=== PATIENT | male | born 1965 | race Caucasian/White ===

== ENCOUNTER 2016-11-02 14:15 | Emergency (ER) | payer MEDICAID ==
[2016-01-03 04:31] VITALS: BMI 28.2
[~2016-11-02 14:15] MED LIST: ALPHAGAN P15 ML EACH EYE; CROLOM 4 % OPTH10 ML EACH EYE; CYCLOBENZAPRINE10 MG PO; DEPAKOTE ER250 MG PO; ERYTHROCIN STE250 MG; HYDROCODON-ACE1 EAC7 PO; KLOR-CON M2020 MEQ PO; NEO-POLY-DEXAM3.5 GM EACH EYE; PROAIR HFA8.5 GM INH; PROTONIX40 MG PO; TENORETIC 50 TA1 TAB PO; ZOFRAN4 MG PO
== END 2016-11-02 16:27 | disposition home or self-care (01) ==
LOC: D.ER 14:15
DX: J01.90 Acute sinusitis, unspecified (principal); R91.8 Other nonspecific abnormal finding of lung field

== ENCOUNTER 2017-04-01 14:34 | Emergency (ER) | payer MEDICAID ==
[2016-01-03 04:31] VITALS: BMI 28.2
== END 2017-04-01 15:32 | disposition home or self-care (01) ==
LOC: D.ER 14:34
DX: S01.512A Laceration without foreign body of oral cavity, initial encounter (principal); X58.XXXA Exposure to other specified factors, initial encounter; Y93.89 Activity, other specified; Y92.89 Other specified places as the place of occurrence of the external cause

== ENCOUNTER 2017-07-06 18:43 | Emergency (ER) | payer MEDICAID ==
[2016-01-03 04:31] VITALS: BMI 28.2
== END 2017-07-06 20:06 | disposition left against medical advice (07) ==
LOC: D.ER 18:43
DX: S69.92XA Unspecified injury of left wrist, hand and finger(s), initial encounter (principal); X58.XXXA Exposure to other specified factors, initial encounter; Y93.89 Activity, other specified; Y92.029 Unspecified place in mobile home as the place of occurrence of the external cause

== ENCOUNTER 2017-07-17 14:36 | Emergency (ER) | payer MEDICAID ==
[2016-01-03 04:31] VITALS: BMI 28.2
[2017-07-17 16:17] LABS: BASOPHILS 0.1 % (0-2); EOSINOPHILS 0.4 % (0-7); HEMATOCRIT 41.5 % (42.0-54.0); HEMOGLOBIN 14.4 g/dL (13.5-17.5); IMMATURE GRANULOCYTES 0.2 % (0-5); LYMPHOCYTES 8.3 % (15-50); MCH 30.9 pg (26.0-34.0); MCHC 34.7 g/dL (31.0-37.0); MCV 89.1 fL (80.0-100.0); MEAN PLATELET VOLUME 10.3 fL (7.4-10.4); MONOCYTES 6.5 % (2-11); NEUTROPHILS 84.5 % (40-80); RBC 4.66 10x6/uL (4.20-6.10); WBC 13.3 10x3/uL (4.8-10.8)
[2017-07-17 16:21] LABS: APPEARANCE CLEAR (CLEAR); BILIRUBIN NEGATIVE (NEGATIVE); COLOR YELLOW (YELLOW); GLUCOSE NEGATIVE (NEGATIVE); KETONE NEGATIVE (NEGATIVE); NITRITE NEGATIVE (NEGATIVE); PROTEIN NEGATIVE (NEGATIVE); SPECIFIC GRAVITY 1.005 (1.005-1.020); UROBILINOGEN NORMAL (NORMAL)
[2017-07-17 16:30] LABS: PLATELET COUNT 182 10x3/uL (130-400)
[2017-07-17 16:50] LABS: ALBUMIN 3.2 g/dL (3.4-5.0); ANION GAP 13.9 mmol/L (8-16); CALCIUM 8.3 mg/dL (8.5-10.1); CARBON DIOXIDE 27.8 mmol/L (21.0-32.0); CREATININE - SERUM 1.3 mg/dL (0.6-1.3); PROTEIN - SERUM 6.2 g/dL (6.4-8.2)
[2017-07-17 16:55] LABS: POTASSIUM - SERUM 2.7 mmol/L (3.5-5.1)
[2017-07-17 17:42] LABS: CREATINE KINASE 105 UL (21-232); TROPONIN-I < 0.017 ng/mL (0.000-0.060)
[2017-07-17 19:31] LABS: UDS - AMPHET POSITIVE QUAL (NEGATIVE); UDS - BARB NEGATIVE QUAL (NEGATIVE); UDS - BENZO NEGATIVE QUAL (NEGATIVE); UDS - COCAINE NEGATIVE QUAL (NEGATIVE); UDS - OPIATE NEGATIVE QUAL (NEGATIVE); UDS - PCP NEGATIVE QUAL (NEGATIVE); UDS - THC NEGATIVE QUAL (NEGATIVE)
== END 2017-07-17 20:34 | disposition home or self-care (01) ==
LOC: D.ER 14:36
PROVIDERS: Emergency Medicine; Nurse Practitioner Family
DX: R53.1 Weakness (principal); E87.6 Hypokalemia; Z91.14 Patient's other noncompliance with medication regimen

== ENCOUNTER 2017-10-05 23:41 | Emergency (ER) | payer MEDICAID | END 2017-10-06 07:30 | disposition home or self-care (01) | LOC: D.ER 23:41 | DX: Z04.1 Encounter for examination and observation following transport accident (principal); Z03.89 Encounter for observation for other suspected diseases and conditions ruled out; V49.9XXA Car occupant (driver) (passenger) injured in unspecified traffic accident, initial encounter; Y93.89 Activity, other specified; Y92.410 Unspecified street and highway as the place of occurrence of the external cause ==

== ENCOUNTER 2018-05-21 07:31 | Emergency (ER) | payer MEDICAID ==
[~2018-05-21] VITALS: Ht 185.4 cm; Wt 101.6 kg
[2018-05-21 07:34] VITALS: Ht 185.4 cm; Wt 101.6 kg
[2018-05-21 08:48] LABS: BASOPHILS 0.1 % (0-2); EOSINOPHILS 0.1 % (0-7); HEMATOCRIT 40.3 % (42.0-54.0); HEMOGLOBIN 14.4 g/dL (13.5-17.5); IMMATURE GRANULOCYTES 0.3 % (0-5); LYMPHOCYTES 8.5 % (15-50); MCH 31.4 pg (26.0-34.0); MCHC 35.7 g/dL (31.0-37.0); MCV 87.8 fL (80.0-100.0); MEAN PLATELET VOLUME 10.4 fL (7.4-10.4); PLATELET COUNT 160 10x3/uL (130-400); RBC 4.59 10x6/uL (4.20-6.10); WBC 18.9 10x3/uL (4.8-10.8)
[2018-05-21 08:58] LABS: ALBUMIN 3.3 g/dL (3.4-5.0); ANION GAP 11.5 mmol/L (8-16); BILIRUBIN - TOTAL 1.28 mg/dL (0.2-1.3); CALCIUM 8.4 mg/dL (8.5-10.1); CARBON DIOXIDE 27.6 mmol/L (21.0-32.0); CREATININE - SERUM 1.4 mg/dL (0.6-1.3); POTASSIUM - SERUM 3.1 mmol/L (3.5-5.1); PROTEIN - SERUM 6.6 g/dL (6.4-8.2)
[2018-05-21] MEDS ORDERED: ZPAK PO (10:09)
[2018-05-21] MEDS ORDERED: OMNICEF300 MG PO (10:09)
[2018-05-21 11:40] VITALS: BP 150/97
== END 2018-05-21 11:45 | disposition home or self-care (01) ==
LOC: D.ER 07:31
PROVIDERS: Family Medicine
DX: D72.829 Elevated white blood cell count, unspecified (principal); J20.9 Acute bronchitis, unspecified; R05 Cough; R53.83 Other fatigue

== ENCOUNTER 2018-06-09 10:06 | Emergency (ER) | payer MEDICAID ==
[~2018-06-09] VITALS: Ht 185.4 cm; Wt 101.8 kg
[~2018-06-09 10:06] MED LIST changes: +OMNICEF300 MG PO; +ZPAK PO
[2018-06-09 10:11] VITALS: Ht 185.4 cm; Wt 101.8 kg
[2018-06-09] MEDS ORDERED: CHLORPROMAZINE200 MG PO (10:13)
[2018-06-09] MEDS ORDERED: KLONOPIN1 MG PO (10:13)
[2018-06-09 11:14] LABS: ALBUMIN 3.1 g/dL (3.4-5.0); ALKALINE PHOSPHATASE 68 U/L (46-116); ALT (SGPT) 19 U/L (10-68); BILIRUBIN - TOTAL 1.47 mg/dL (0.2-1.3); CALC OSMOLALITY 284 mosm/kg (275-300); CALCIUM 7.9 mg/dL (8.5-10.1); CARBON DIOXIDE 28.3 mmol/L (21.0-32.0); CHLORIDE - SERUM 104 mmol/L (98-107); CREATININE - SERUM 1.4 mg/dL (0.6-1.3); GLUCOSE 143 mg/dL (74-106); POTASSIUM - SERUM 3.1 mmol/L (3.5-5.1); PROTEIN - SERUM 6.3 g/dL (6.4-8.2); SODIUM 139 mmol/L (136-145); UREA NITROGEN 26 mg/dL (7-18); eGFR NON AFRICAN AMERICAN 56 mL/min (90-120)
[2018-06-09 11:16] LABS: BASOPHILS 0.2 % (0-2); EOSINOPHILS 1.1 % (0-7); HEMATOCRIT 39.8 % (42.0-54.0); HEMOGLOBIN 13.7 g/dL (13.5-17.5); IMMATURE GRANULOCYTES 0.2 % (0-5); LYMPHOCYTES 8.7 % (15-50); MCH 30.9 pg (26.0-34.0); MCHC 34.4 g/dL (31.0-37.0); MCV 89.6 fL (80.0-100.0); MEAN PLATELET VOLUME 10.2 fL (7.4-10.4); MONOCYTES 5.5 % (2-11); NEUTROPHILS 84.3 % (40-80); PLATELET COUNT 185 10x3/uL (130-400); RBC 4.44 10x6/uL (4.20-6.10); RDW 13.4 % (11.5-14.5); WBC 11.7 10x3/uL (4.8-10.8)
[2018-06-09 11:24] LABS: CKMB 3.4 U/L (0.0-3.6)
[2018-06-09] MEDS ORDERED: LEVAQUIN250 MG PO (13:27)
[2018-06-09] MEDS ORDERED: MEDROL DOSE PACK4 MG PO (13:27)
[2018-06-09] MEDS ORDERED: PROVENTIL/2.5 MG/3 M INH (13:28)
[2018-06-09 13:57] VITALS: BP 142/69
== END 2018-06-09 13:58 | disposition home or self-care (01) ==
LOC: D.ER 10:06
PROVIDERS: Family Medicine
DX: J18.9 Pneumonia, unspecified organism (principal); E87.6 Hypokalemia; E83.42 Hypomagnesemia; R51 Headache; M79.18 Myalgia, other site; I10 Essential (primary) hypertension; K21.9 Gastro-esophageal reflux disease without esophagitis; F17.200 Nicotine dependence, unspecified, uncomplicated

== ENCOUNTER 2018-08-26 09:10 | Emergency (ER) | payer MEDICAID ==
[~2018-08-26] VITALS: Ht 185.4 cm; Wt 110.9 kg
[~2018-08-26 09:10] MED LIST changes: +CHLORPROMAZINE200 MG PO; +KLONOPIN1 MG PO; +LEVAQUIN250 MG PO; +MEDROL DOSE PACK4 MG PO; +PROVENTIL/2.5 MG/3 M INH
[2018-08-26 09:14] VITALS: Ht 185.4 cm; Wt 110.9 kg
[2018-08-26 10:30] LABS: BASOPHILS 0.1 % (0-2); HEMOGLOBIN 14.5 g/dL (13.5-17.5); IMMATURE GRANULOCYTES 0.3 % (0-5); MCH 31.4 pg (26.0-34.0); MCHC 34.5 g/dL (31.0-37.0); MCV 90.9 fL (80.0-100.0); MEAN PLATELET VOLUME 9.9 fL (7.4-10.4); MONOCYTES 6.6 % (2-11); PLATELET COUNT 149 10x3/uL (130-400); RBC 4.62 10x6/uL (4.20-6.10); RDW 12.8 % (11.5-14.5); WBC 10.8 10x3/uL (4.8-10.8)
[2018-08-26 10:41] LABS: APTT 35.9 SECONDS (22.8-39.4); INR 1.13 (0.85-1.17)
[2018-08-26 10:45] LABS: ALBUMIN 3.2 g/dL (3.4-5.0); ANION GAP 13.1 mmol/L (8-16); BILIRUBIN - TOTAL 0.9 mg/dL (0.2-1.3); CALCIUM 8.5 mg/dL (8.5-10.1); CARBON DIOXIDE 25.7 mmol/L (21.0-32.0); CREATININE - SERUM 1.3 mg/dL (0.6-1.3); POTASSIUM - SERUM 3.8 mmol/L (3.5-5.1); PROTEIN - SERUM 6.4 g/dL (6.4-8.2)
[2018-08-26] MEDS ORDERED: OMNICEF300 MG PO (13:39)
[2018-08-26] MEDS ORDERED: CARAFATE1 G PO (13:39)
[2018-08-26 13:59] VITALS: BP 128/72
== END 2018-08-26 14:00 | disposition home or self-care (01) ==
LOC: D.ER 09:10
PROVIDERS: Family Medicine
DX: J18.9 Pneumonia, unspecified organism (principal); I10 Essential (primary) hypertension; F17.200 Nicotine dependence, unspecified, uncomplicated

== ENCOUNTER 2018-09-05 08:08 | Emergency (ER) | payer MEDICAID ==
[~2018-09-05] VITALS: Ht 185.4 cm; Wt 113.6 kg
[~2018-09-05 08:08] MED LIST changes: +CARAFATE1 G PO
[2018-09-05 08:15] VITALS: Ht 185.4 cm; Wt 113.6 kg
[2018-09-05] MEDS ORDERED: TENORMIN50 MG PO (08:16)
[2018-09-05] MEDS ORDERED: LEVAQUIN750 MG PO (09:09)
[2018-09-05] MEDS ORDERED: NASONEX NASAL S17 GM NS (09:09)
[2018-09-05] MEDS ORDERED: PROVENTIL/2.5 MG/3 M INH (09:09)
[2018-09-05 09:55] VITALS: BP 141/97
== END 2018-09-05 09:58 | disposition other institution (70) ==
LOC: D.ER 08:08
DX: J18.9 Pneumonia, unspecified organism (principal); R50.9 Fever, unspecified; M79.18 Myalgia, other site; I10 Essential (primary) hypertension; F17.200 Nicotine dependence, unspecified, uncomplicated

== ENCOUNTER 2018-10-30 04:51 | Emergency (ER) | payer MEDICAID ==
[~2018-10-30] VITALS: Ht 185.4 cm; Wt 109.1 kg
[~2018-10-30 04:51] MED LIST changes: +LEVAQUIN750 MG PO; +NASONEX NASAL S17 GM NS; +TENORMIN50 MG PO
[2018-10-30 04:55] VITALS: Ht 185.4 cm; Wt 109.1 kg
[2018-10-30] MEDS ORDERED: SULFAMETHOXAZOL1 TA3 PO (05:21)
[2018-10-30 06:36] VITALS: BP 114/71
== END 2018-10-30 06:37 | disposition home or self-care (01) ==
LOC: D.ER 04:51
DX: K44.9 Diaphragmatic hernia without obstruction or gangrene (principal); K21.9 Gastro-esophageal reflux disease without esophagitis; T17.818A Gastric contents in other parts of respiratory tract causing other injury, initial encounter; X58.XXXA Exposure to other specified factors, initial encounter; Y93.89 Activity, other specified; Y92.019 Unspecified place in single-family (private) house as the place of occurrence of the external cause

== ENCOUNTER 2018-12-10 05:49 | Day surgery (SDC) | payer MEDICAID ==
[~2018-12-10] VITALS: Ht 185.4 cm; Wt 110.9 kg
[~2018-12-10 05:49] MED LIST changes: +SULFAMETHOXAZOL1 TA3 PO
[2018-12-10 06:25] LABS: HEMATOCRIT 42.7 % (42.0-54.0); HEMOGLOBIN 15.1 g/dL (13.5-17.5); MCH 31.3 pg (26.0-34.0); MCHC 35.4 g/dL (31.0-37.0); MCV 88.6 fL (80.0-100.0); MEAN PLATELET VOLUME 10.5 fL (7.4-10.4); RBC 4.82 10x6/uL (4.20-6.10); RDW 12.8 % (11.5-14.5); WBC 5.7 10x3/uL (4.8-10.8)
[2018-12-10] MEDS ORDERED: CYCLOBENZAPRINE10 MG PO (06:33)
[2018-12-10] MEDS ORDERED: FLOMAX0.4 MG PO (06:33)
[2018-12-10 06:41] VITALS: BP 105/62; Ht 185.4 cm; Wt 110.9 kg
--- NOTE | 2018-12-10 08:39 | NUR ---
DC INSTRUCTIONS GIVEN TO PT/FAMILY. STATE UNDERSTANDING. DC'D IV CATH FULLY INTACT.
--- NOTE | 2018-12-10 08:42 | NUR ---
PT LEFT UNIT VIA WC AT 0843
--- NOTE | 2018-12-12 18:24 | OP ---
PATIENT NAME: MICHAEL WALDROP MEDICAL RECORD: [id number] :63 LOCATION:D.FORMERLY [facility] [place] ADMISSION DATE: SURGEON: KORY LYNCH DO DATE OF OPERATION: 12/10/2018 PROCEDURE: EGD with biopsies. INDICATIONS FOR PROCEDURE: Dysphagia, epigastric pain, GERD. SCOPE: Olympus video gastroscope. MEDICATIONS: Propofol 120 mg IV per anesthesia. ESTIMATED BLOOD LOSS: Minimal. COMPLICATIONS: None. FINDINGS AND DESCRIPTION OF PROCEDURE: Informed consent was given. The patient was made comfortable with the above medication. After reaching an adequate level of sedation by slow IV push, the patient was placed on his left side. The endoscope was advanced under direct visualization through the mouth to the second portion of the duodenum. The entire esophagus appeared normal. At the GE junction, there were mild changes consistent with LA class A reflux-induced esophagitis. Just beyond the GE junction, within the stomach you could visualize a moderate-sized hiatal hernia proximally. The endoscope was advanced into the stomach and retroflexed to view the cardia and fundus where again the hiatal hernia was easily visualized. There was a sliding type hiatal hernia, which was approximately 5 cm in length. There were some associated ulcerations with the hernia itself. There was no active bleeding. In the body of the stomach, there were multiple benign-appearing fundic gland gastric polyps. A single biopsy was taken of the polyp to submit for histopathology. In the antrum and prepyloric regions of the stomach, there were changes of erythema and granularity consistent with possible gastritis. Random cold forceps biopsies were taken to submit for histopathology and to rule out the presence of H. pylori. The endoscope was advanced beyond the pylorus into the duodenum, which appeared normal down to the second portion. The endoscope was withdrawn from the patient. The patient tolerated the procedure well and there were no complications. IMPRESSION: 1. LA class A reflux-induced esophagitis. 2. Moderate sized sliding hiatal hernia with associated ulcerations. The hernia measured approximately 5 cm in length. 3. Gastritis. 4. Multiple benign-appearing fundic gland gastric polyps. PLAN AND RECOMMENDATIONS: 1. Discharge home when recovery parameters are met. 2. Follow up biopsy specimen results. 3. GERD diet and reflux precautions. 4. Maintain appointment with Dr. Louise to discuss correcting his hiatal hernia. 5. Continue current medications until definitive therapy is undertaken. 6. Discussed a pH study with the patient. He does not believe he would tolerate placement and maintenance of the probe over a 24-hour period. We will OPERATIVE REPORT [id number] MICHAEL WALDROP defer to Dr. Louise if any ancillary testing is needed to further justify a fundoplication. TRANSINT:[id number] Voice Confirmation ID: [id number] DOCUMENT ID: [id number] KORY LYNCH DO at 1824 CC: [id number] DICTATION DATE: 12/10/18 08 REFINERY OPERATOR POLYMERIZATION PLANT: 12/10/18 0957 [facility] 12/10/18 [facility] [address] [place] [address]
== END 2018-12-10 08:43 | disposition home or self-care (01) ==
LOC: D.OPS 05:49
PROVIDERS: Anesthesiology; ATTEND Internal Medicine Gastroenterology
DX: R10.13 Epigastric pain (principal); R13.10 Dysphagia, unspecified; K21.9 Gastro-esophageal reflux disease without esophagitis

== ENCOUNTER 2018-12-27 07:23 | Outpatient (CLI) | payer MEDICAID ==
[2018-12-10 06:41] VITALS: BMI 32.2
[~2018-12-27 07:23] MED LIST changes: +FLOMAX0.4 MG PO
== END 2018-12-27 10:00 | disposition home or self-care (01) ==
LOC: D.OPS 07:23
PROVIDERS: ATTEND Surgery
DX: R13.10 Dysphagia, unspecified (principal)

== ENCOUNTER → 2019-01-15 08:55 | Outpatient (CLI) | payer MEDICAID ==
[2019-01-11 15:36] LABS: HEMATOCRIT 40.4 % (42.0-54.0); HEMOGLOBIN 14.2 g/dL (13.5-17.5); MCH 31.8 pg (26.0-34.0); MCHC 35.1 g/dL (31.0-37.0); MCV 90.4 fL (80.0-100.0); RBC 4.47 10x6/uL (4.20-6.10); RDW 12.8 % (11.5-14.5); WBC 5.8 10x3/uL (4.8-10.8)
[~2019-01-15] VITALS: Ht 185.4 cm; Wt 109.3 kg
[~2019-01-15 08:55] MED LIST changes: +BACTRIM 400-801 TAB PO; +HYDROCODON-ACE1 EA10 PO; +REGLAN10 MG PO
[2019-01-15 10:34] VITALS: BP 102/67; Ht 185.4 cm; Wt 109.3 kg
== END | disposition home or self-care (01) ==
LOC: D.OPS 08:55 → EDSTATUS 09:15 → D.PAN 09:15 → D.OPS 09:15
PROVIDERS: Anesthesiology; ATTEND Surgery
DX: K21.9 Gastro-esophageal reflux disease without esophagitis (principal); K44.9 Diaphragmatic hernia without obstruction or gangrene

== ENCOUNTER 2019-01-17 10:04 | Day surgery (SDC) | payer MEDICAID ==
[~2019-01-17] VITALS: Ht 185.4 cm; Wt 110.9 kg
[2019-01-17] VITALS (10 sets, daily range): BP systolic 112–151; BP diastolic 75–91; Ht 185.4 cm; Wt 110.9 kg
[~2019-01-17 10:04] MED LIST changes: -BACTRIM 400-801 TAB PO; -HYDROCODON-ACE1 EA10 PO; -REGLAN10 MG PO
[2019-01-17] MEDS ORDERED: BACTRIM 400-801 TAB PO (11:24)
--- NOTE | 2019-01-17 19:15 | NUR ---
PT ALERT AND ORIENTED WHEN ENTERING THE ROOM. AT BEDSIDE. PT STATES HE HAS URGE TO URINATE BUT HAS BEEN UNABLE TO. ASSISTED PT WITH URINAL AND TO TOILET TO SIT. PT UNABLE TO VOID AND FRETTING. REASSURED PT THAT THIS IS A NORMAL SIDE EFFECT. PT ASKED TO BE CATHED. PAGE TO DOCTOR DOWELL.
--- NOTE | 2019-01-17 20:30 | NUR ---
PT STILL UNABLE TO VOID. PT GROWING INCREASINLY IRRITATED WELL . PAGE TO DOCTOR UNSUCCESSFUL. ENCOURAGED PATIENT TO USE COMMODE AGAIN. PT ATTEMPTED BUT UNSUCCESSFUL. TURNED ON SINK AND APPLIED WARM RAG TO PERNIEAL AREA TO HELP WITH URINE RETENTION.
--- NOTE | 2019-01-17 21:20 | NUR ---
SPOKE WITH CHARGE NURSE ABOUT PT SITUATION. AGREED TO DO BLADDER SCAN. 515 IN BLADDER ACCORDING TO SCAN.
--- NOTE | 2019-01-17 22:15 | NUR ---
SPOKE WITH CHARGE NURSE. IN AND OUT CATH PERFORMED BLADDER SCANNED REVEALED GREATER THAN 400. IN AND OUT CATH PERFORMED USING STERILE TECHNIQUE. NO ISSUES WITH INSERTION. RECEIVED 600 ML OUT. PT DENIES FURTHER NEEDS. EDUCATED PATIENT TO USE CALL LIGHT WHEN IN NEED OF GETTING UP. PT VERBALIZES UNDERSTANDING. REMAINS AT BEDSIDE.
[2019-01-18] VITALS: BP 127/73
--- NOTE | 2019-01-18 02:33 | NUR ---
PT USED CALL LIGHT. ASKED TO SPEAK WITH THIS NURSE ABOUT CONCERNS OVER NOT BEING ABLE TO URINATE. PT STATES HE TRIED AGAIN TO NO SUCCESS. INSTRUCTED PATIENT THIS NURSE WOULD BLADDER SCAN AGAIN CLOSER TO MORNING
[2019-01-18 04:00] VITALS: BP 133/69
--- NOTE | 2019-01-18 04:33 | NUR ---
PT USED CALL LIGHT AGAIN STATING HE ATTEMPTED MULTIPLE TIMES TO URINATE AND THAT HE FEELS HE NEEDS TO GO BUT IS UNABLE. CHARGE NURSE IN ROOM AND NOTIFIED PATIENT THAT ONCE AN IN AND OUT IS PERFORMED THAT IT IS POLICY TO INSERT FLANNERY CATHETER AND THAT IT STAY. EDUCATED PATIENT ON RISKS OF FLANNERY CATHETER. PATIENT AWARE BUT REMAINS IN DISTRESS ABOUT BEING UNABLE TO URINATE. PT STATES THAT HE HAS ANXIETY AND CAN'T STOP WORRYING ABOUT NOT BEING ABLE TO URINATE. CONSULTED WITH CHARGE NURSE ABOUT COURSE OF ACTION. AGREED TO PLACE FLANNERY CATHETER. PLACED USING STERILE TECHNIQUE. 400 ML OUT IMMEDIATELY AND CONTINUALLY DRAINING.
[2019-01-18 05:15] LABS: BASOPHILS 0.1 % (0-2); EOSINOPHILS 0.1 % (0-7); HEMATOCRIT 41.5 % (42.0-54.0); HEMOGLOBIN 14.3 g/dL (13.5-17.5); IMMATURE GRANULOCYTES 0.3 % (0-5); LYMPHOCYTES 16.7 % (15-50); MCHC 34.5 g/dL (31.0-37.0); MEAN PLATELET VOLUME 9.9 fL (7.4-10.4); MONOCYTES 8.8 % (2-11); PLATELET COUNT 171 10x3/uL (130-400); RBC 4.61 10x6/uL (4.20-6.10); RDW 13.1 % (11.5-14.5); WBC 7.8 10x3/uL (4.8-10.8)
[2019-01-18 05:29] LABS: ANION GAP 11.8 mmol/L (8-16); CALCIUM 8.6 mg/dL (8.5-10.1); CARBON DIOXIDE 28.1 mmol/L (21.0-32.0); CREATININE - SERUM 1.2 mg/dL (0.6-1.3); POTASSIUM - SERUM 3.9 mmol/L (3.5-5.1)
--- NOTE | 2019-01-18 08:15 | NUR ---
PT RESTING IN BED. AT BEDSIDE. "I PRAYED FOR CATH AND NOW I GOT ONE AND NOW IT IS UNCOMFORTABLE." EXPLAINED TO HIM WE WOULD NEED TO WAIT ON MD TO ROUND AND EXPLAIN TO HIM THAT THE PT WAS UNABLE TO URINATE. PT AGREED. ROUSTABOUT CREW PUSHER EDUCATION DONE. EXPLAINED TO PT ONLY HE WOULD BE ABLE. NO S/S OF ACUTE DISTRESS. CL IN PLACE.
[2019-01-18 09:01] VITALS: BP 135/81
--- NOTE | 2019-01-18 10:52 | NUR ---
FC DC 500 ML OF TEA COLORED URINE EMPTIED. NO S/S OF ACUTE DISTRESS. CL IN PLACE.
--- NOTE | 2019-01-18 12:32 | NUR ---
IV HURTING AND WILL NOT FLUSH. DC IV WITH TIP INTACT. SPOKE WITH DR DOWELL ABOUT DC IV. DC IV WITH TIP INTACT. PT CO OF HURTING IN MIDGASTRIC AREA. PT DRANK CLOSE TO 700 ML OF CLEAR LIQUID. CLEAR EMESIS NOTED. EXPLAINED TO PT HE MAY WANT TO DRINK SLOWER AND NOT INDULGE IN SUCH A SHORT PERIOD. DR DOWELL NOTIFIED. NO S/S OF ACUTE DISTRESS. CL IN PLACE. AT BEDSIDE.
[2019-01-18 13:07] VITALS: BP 170/109
[2019-01-18] MEDS ORDERED: HYDROCODON-ACE1 EA10 PO (13:25)
[2019-01-18] MEDS ORDERED: REGLAN10 MG PO (13:26)
--- NOTE | 2019-01-18 16:38 | NUR ---
SPOKE WITH DR DOWELL ABOUT PT "THROWING UP" NEW ORDER FOR DILAUDID 1 MG Q4PRN. 75ML OF CONCENTRATED YELLOW URINE NOTED. IV STARTED TO R WRIST. DILAUDID AND TORDOL GIVEN PER MD ORDER. CO OF "SPITTING UP FOAMY SUBSTANCE" EXPLAINED TO PT TO DRINK SLOW AND SPREAD OUT. BLADDER SCAN DONE 270 ML NOTED.NO S/S OF ACUTE DISTRESS. CL IN PLACE.
[2019-01-18 17:23] VITALS: BP 147/96
--- NOTE | 2019-01-18 18:44 | NUR ---
PT REPORTS DECLINE IN PAIN 12/28. " WHATEVER YOU GAVE ME HAS MADE ME FEEL SO MUCH BETTER." EDUCATED PT ON EFFECTS OF DILAUDID AND TORDOL. PT STATED HE HAS NOT BEEN BURPING UP FOAM OFTEN AND HAS WENT VERY SLOW ON DRINKING. REPORTS ICE CHIPS TO HELPING PT OUT. "THANK YOU FOR YOUR HELP TODAY, I FEEL BETTER AND DO NOT FEEL LIKE I AM GOING TO ." PT REPORTS TO BEING, "LESS ANXIOUS". AT BEDSIDE.PT REPORTS 75 ML OF CONCENTRATED URINE THIS SHIFT. EXPLAINED TO PT TO REPORT ANYTIME HE URNITAES. NO S/S OF ACUTE DISTRESS. CL IN PLACE.
[2019-01-18 20:00] VITALS: BP 104/76
--- NOTE | 2019-01-18 21:00 | NUR ---
REPORTS PAIN OF 4/10. STATES HE WOULD LIKE HIS PAIN MEDICINE TO HELP HIM SLEEP. INFORMED HIS THAT PO MEDS WILL LAST LONGER, PT REFUSED, STATING HE WOULD RATHER THE PAIN SHOT. WILL CONTINUE TO MONITOR.
--- NOTE | 2019-01-18 22:00 | NUR ---
PT UP AD ODETTE, WALKING IN HALLS. DENIES NEEDS AT THIS TIME.
[2019-01-19] VITALS: BP 105/60
--- NOTE | 2019-01-19 03:22 | NUR ---
I have reviewed this patient and I concur with the Shift Assessment completed by the Licensed Practical Nurse today this shift.
[2019-01-19 04:00] VITALS: BP 111/84
--- NOTE | 2019-01-19 07:30 | NUR ---
PATIENTS SPOUSE CONTINUIOUSLY AT DESK REQUESTING DISCHARGE BE DONE ALTHOUGH IT HAS BEEN EXPLAINED SEVERAL TIMES THAT DISCHARGE INSTRUCTIONS FROM DR DOWELL HAVE TO BE ORDERED AND DISCHARGE COMPLETE FOR PATIENT TO SIGN.
--- NOTE | 2019-01-19 08:04 | NUR ---
PATIENT VOIDING WITHOUT DIFFICULTY AND IS VERY ANXIOUS TO BE DISCHARGED TODAY
--- NOTE | 2019-01-19 08:29 | NUR ---
IV REMOVED FROM RIGHT WRIST WITH NO REDNESS OR EDEMA. DISCUSSED DISCHARGE INSTRUCTIONS WITH PATIENT AND DIEUDONNE AT [facility] WITH BOTH VOICING UNDERSTANDING. PATIENT REQUEST TO AMBULATE TO PRIVATE CAR WITH SPOUSE. PATIENT HAS NORCO SCRIPT IN HAND
--- NOTE | 2019-01-25 10:09 | OP ---
PATIENT NAME: MICHAEL WALDROP MEDICAL RECORD: [id number] :63 LOCATION:[facility] ADMISSION DATE: SURGEON: HAKEEM DOWELL MD DATE OF OPERATION: 01/17/2019 PREOPERATIVE DIAGNOSES: 1. GERD with hiatal hernia. 2. COPD. 3. Hypertension. 4. Asthma. POSTOPERATIVE DIAGNOSES: 1. GERD with hiatal hernia. 2. COPD. 3. Hypertension. 4. Asthma. PROCEDURE: Laparoscopic Josselin with hiatal hernia repair. SURGEON: Hakeem Dowell MD REPORT OF PROCEDURE: The patient's abdomen was prepped and draped in sterile fashion. A Veress needle was inserted in the left upper quadrant and the abdomen was insufflated. An 11-mm Visiport trocar was inserted in the midline just above the umbilicus. At this point, we could see the Veress needle and there was no sign of any injury to bowel or surrounding structures. A 5-mm trocar was placed in the left lateral abdomen. This was used to takedown some adhesions in the left upper quadrant of the omentum to the anterior abdominal wall. This was done using a Harmonic scalpel. Once these were out of the way, then an 11-mm trocar was placed under direct visualization in the left subcostal region. A 5-mm trocar was placed in the epigastrium and a final 5-mm trocar was placed in the right lateral subcostal region. The liver retractor was inserted and the left lobe of the liver was elevated. We could see the patient had a large hiatal hernia encompassing about the upper third to the upper half of the stomach. We started on the lesser curvature of the stomach and took down the lesser omentum using Harmonic scalpel. We continued this dissection up to the right side of the right janelle. We opened up the peritoneum extending into the thoracic cavity and took down the hernia sac entering the thoracic cavity. We continued this as far anteriorly and posteriorly as possible. We then approached the greater curvature of the stomach, and with the upper third of the stomach, we took down the short gastrics using Harmonic scalpel. We did this dissection up to the left side of the right janelle and then scored the peritoneum and entered the thoracic cavity, taking down the hernia sac. Once the hernia sac was completely freed up, then the stomach would rest easily in the abdominal cavity with about 2-3 cm of esophagus present. The vagus nerves were visualized and appeared to be intact. A fat pad was present on the anterior aspect of the GE junction and this was taken down using Harmonic scalpel. We then reapproximated the esophageal hiatus with interrupted #0 Polydeks times 4. The patient underwent a posterior 360-degree wrap of the fundus of the stomach again using interrupted #0 Polydeks times 3 with the top and the bottom suture incorporating a bite of the esophagus. The wrap appeared to rest in good position with no signs of this being too tight. The indwelling orogastric tube was removed with ease. We irrigated out the abdomen and assured there was no sign of any bleeding or bile leakage. At this point, the liver retractor was removed. The 11-mm trocar site fascias were closed with interrupted #0 Vicryls OPERATIVE REPORT [id number] MICHAEL WALDROP using a Lan-Mona suture passer device. The ports and insufflation were then removed. The skin incisions were all infused with a total of 10 mL of 0.25% Marcaine with epinephrine and then closed with subcutaneous 5-0 Monocryl. COMPLICATIONS: None. CONDITION: Stable. ANESTHESIA: General endotracheal and local. BLOOD LOSS: Minimal. TRANSINT:[id number] Voice Confirmation ID: [id number] DOCUMENT ID: [id number] HAKEEM DOWELL MD at 1009 CC: NORY INMAN MD [id number] DICTATION DATE: 01/17/19 1538 LOG OPERATIONS COORDINATOR: 01/17/19 1714 [facility] 01/19/19 [facility] [address] [place] [address]
== END 2019-01-19 08:48 | disposition home or self-care (01) ==
LOC: D.MS 10:04 → D.OPS 10:04 → D.PAN 12:00 → D.OPS 12:00 → D.MS 16:55 → D.OPS 01-19 08:48
PROVIDERS: ATTEND Surgery
DX: K21.9 Gastro-esophageal reflux disease without esophagitis (principal); K44.9 Diaphragmatic hernia without obstruction or gangrene; J44.9 Chronic obstructive pulmonary disease, unspecified; I10 Essential (primary) hypertension; Z01.812 Encounter for preprocedural laboratory examination

== ENCOUNTER 2019-03-16 09:32 | Emergency (ER) | payer MEDICAID ==
[~2019-03-16] VITALS: Ht 185.4 cm; Wt 106.8 kg
[~2019-03-16 09:32] MED LIST changes: +BACTRIM 400-801 TAB PO; +HYDROCODON-ACE1 EA10 PO; +REGLAN10 MG PO
[2019-03-16 09:36] VITALS: Ht 185.4 cm; Wt 106.8 kg
[2019-03-16] MEDS ORDERED: FLUTICASONE PRO16 GM NASAL (11:01)
[2019-03-16 11:30] VITALS: BP 104/70
== END 2019-03-16 11:31 | disposition home or self-care (01) ==
LOC: D.ER 09:32
DX: J01.90 Acute sinusitis, unspecified (principal)

== ENCOUNTER → 2019-03-26 09:31 | Outpatient (CLI) | payer MEDICAID ==
[2019-03-16 09:36] VITALS: BMI 31.0
[~2019-03-26 09:31] MED LIST changes: +FLUTICASONE PRO16 GM NASAL
--- NOTE | 2019-03-26 10:10 | NUR ---
PT WAS SCHEDULED FOR A PULMONARY fUNCTION TEST AND 6 MINUTE WALK TEST. PT WAS TOLD HE WAS JUST SUPPOSED TO WALK AND THAT IS ALL HE WAS GOING TO DO. HIS ASK IF HE COULD HAVE IT ANOTHER TIME THEY WERE GOING TO SEE HIS OTHERS DOCTOR, I TOLD HER THAT IT WAS DIFFICULT TO GET HIM BUT WE WOULD TRY AND DO WHAT WE NEEDED TO AT THIS TIME. HE WAS HAPPY TO DO THE WALK TEST. I SPOKE WITH PULMONARY CLINIC AND RELAYED THIS INFORMATION. COPY WAS SENT OF WALK TEST THEY WERE HEADED OVER FOR HIS APPOINTMENT.
== END | disposition home or self-care (01) ==
LOC: D.RT 09:31
PROVIDERS: ATTEND Internal Medicine Pulmonary Disease
DX: J43.9 Emphysema, unspecified (principal)

== ENCOUNTER → 2019-04-08 09:13 | Outpatient (CLI) | payer MEDICAID ==
[2019-03-16 09:36] VITALS: BMI 31.0
== END | disposition home or self-care (01) ==
LOC: D.CT 09:13
PROVIDERS: ATTEND Internal Medicine Pulmonary Disease
DX: J43.9 Emphysema, unspecified (principal)

== ENCOUNTER → 2019-05-16 14:35 | Outpatient (CLI) | payer MEDICAID ==
[2019-03-16 09:36] VITALS: BMI 31.0
== END | disposition home or self-care (01) ==
LOC: D.RT 14:35
PROVIDERS: ATTEND Internal Medicine Pulmonary Disease
DX: J43.9 Emphysema, unspecified (principal)

== ENCOUNTER 2019-10-26 03:12 | Inpatient (IN) | payer MEDICAID ==
[2019-10-26] VITALS (12 sets, daily range): BP systolic 81–116; BP diastolic 56–85; Ht 185.4 cm; Wt 94.1 kg
[~2019-10-26] VITALS: Ht 185.4 cm; Wt 94.1 kg
[2019-10-26 03:37] LABS: BASOPHILS 0.1 % (0-2); EOSINOPHILS 0 % (0-7); HEMATOCRIT 43.8 % (42.0-54.0); HEMOGLOBIN 14.3 g/dL (13.5-17.5); IMMATURE GRANULOCYTES 0.4 % (0-5); LYMPHOCYTES 12.9 % (15-50); MCH 30.7 pg (26.0-34.0); MCHC 32.6 g/dL (31.0-37.0); MEAN PLATELET VOLUME 9.7 fL (7.4-10.4); MONOCYTES 11.1 % (2-11); NEUTROPHILS 75.5 % (40-80); RBC 4.66 10x6/uL (4.20-6.10); RDW 13.9 % (11.5-14.5)
[2019-10-26 03:41] LABS: PLATELET COUNT 241 10x3/uL (130-400)
[2019-10-26 03:42] LABS: BILIRUBIN NEGATIVE (NEGATIVE); GLUCOSE NEGATIVE (NEGATIVE); KETONE NEGATIVE (NEGATIVE); NITRITE NEGATIVE (NEGATIVE); SPECIFIC GRAVITY 1.015 (1.005-1.020); UROBILINOGEN NORMAL (NORMAL); WHITE CELLS - URINE 0-5 /hpf (NEGATIVE)
[2019-10-26 03:45] LABS: ANION GAP 16.5 mmol/L (8-16); CALCIUM 8.9 mg/dL (8.5-10.1); CARBON DIOXIDE 25.6 mmol/L (21.0-32.0); POTASSIUM - SERUM 4.1 mmol/L (3.5-5.1)
[2019-10-26 03:46] LABS: UDS - AMPHET POSITIVE QUAL (NEGATIVE); UDS - BARB NEGATIVE QUAL (NEGATIVE); UDS - BENZO NEGATIVE QUAL (NEGATIVE); UDS - COCAINE NEGATIVE QUAL (NEGATIVE); UDS - OPIATE NEGATIVE QUAL (NEGATIVE); UDS - PCP NEGATIVE QUAL (NEGATIVE); UDS - THC NEGATIVE QUAL (NEGATIVE)
[2019-10-26 03:51] LABS: ALBUMIN 4.1 g/dL (3.4-5.0); BILIRUBIN - TOTAL 1.72 mg/dL (0.2-1.3); PROTEIN - SERUM 7.2 g/dL (6.4-8.2)
--- NOTE | 2019-10-26 04:56 | NUR ---
PT BACK FROM ORDERED CT AT THIS TIME. RESPIRATIONS EVEN AND UNLABORED. ARROUSES TO VERBAL AND TACTILE STIMULATION. WILL CONTINUE TO MONITOR.
--- NOTE | 2019-10-26 06:48 | NUR ---
PT ARRIVED ON UNIT VIA STRETCHER ACCOMPANIED BY ER STAFF. ABLE TO SELF TRANSPORT FROM STRETCHER TO BED BY SCOOTING. LETHARGIC, CONFUSED - VSS CPOC
--- NOTE | 2019-10-26 08:55 | NUR ---
0700 PT RECIEVED ALERT AND ORIENTED TO PERSON AND SOMEWHAT TO PLACE, BELIEVES IT IS 2011, ANSWERS QUESTIONS SLOWLY BUT ABLE TO ANSWER BEFORE APPEARING TO FALL ASLEEP. VSS, LFA PIV PATENT, IV FLUIDS INFUSING RECIEVED CALL FROM PERSON CLAIMING TO BE PTS GIRLFRIEND FOR UPDATE, DOES NOT HAVE SECURITY CODE AND PT DOES NOT ANSWER IF OK TO GIVE INFORMATION, EXPLAINED TO HER AND SHE BEGAN TO GET UPSET AND WAS UNABLE TO BE UNDERSTOOD ON THE PHONE. VISITING HOURS PROVIDED AND SHE HUNG UP
--- NOTE | 2019-10-26 10:02 | NUR ---
PT AWAKE AND ASKING TO BE A CONFIDENTIAL PATIENT STATING HE DOESNOT WANT ANYONE TO BE ABLE TO KNOW HE IS HERE. CALLED ER ADMISSIONS AND NOTIFIED
--- NOTE | 2019-10-26 12:40 | NUR ---
PT SEEN BY DR CASTILLO STATED HE WANTED TO LEAVE TO TAKE THE POLICE TO HIS HOUSE TO GET HIS MEDICATIONS AWAY FROMHIS GIRLFRIEND. AGREED TO STAY TO SEE DR FISCHER. PT SPOKE WITH DR FISCHER AND STATED HE WANTED TO LEAVE AMA TO GO GET HIS BELONGINGS. DR FISCHER STATED HE COULD LEAVE AMA, AMA FORM SIGNED, PIV DCD TIP INTACT, EVENT OPERATIONS MANAGER AND CHARGE NURSE NOTIFIED
--- NOTE | 2019-10-26 13:31 | NUR ---
1300 PT LEFT AMA
--- NOTE | 2019-10-27 14:32 | MORECARE ---
CASE MANAGEMENT DISCHARGE SUMMARY PATIENT: MICHAEL WALDROP UNIT: [id number] ADM DATE: 10/26/19 AGE: 54 : 63 SEX: M ROOM/BED: D.2304 AUTHOR: LANDEN DEL CID PHYSICIAN: REFERRING PHYSICIAN: TOMASZ FISCHER MD DATE OF SERVICE: 10/27/19 Discharge Plan Patient Name: MICHAEL WALDROP [facility] [facility] 1965 Planned Disposition: Anticipated Discharge Date: Discharge Date: 10/26/2019 Expected LOS: Initial Reviewer: [email or web address] Initial Review Date: 10/26/2019 Generated: 10/27/19 3:32 pm Patient Name: MICHAEL WALDROP Page [phone] at 1432 All edits/amendments must be made on the electronic document DICTATION DATE: 10/27/19 1432 SOLAR CONSULTANT: SHARON 10/27/19 1432 RPT#: [id number] DC DATE:10/26/19 STATUS: DIS IN [facility] [address] [place] [address] END OF REPORT
== END 2019-10-26 13:00 | disposition left against medical advice (07) | DRG 682 ==
LOC: D.ER 03:12 → D.ICU 06:07
PROVIDERS: Family Medicine; ADMIT Emergency Medicine; ATTEND Emergency Medicine
DX: N17.9 Acute kidney failure, unspecified (principal); G93.41 Metabolic encephalopathy; E87.0 Hyperosmolality and hypernatremia; I10 Essential (primary) hypertension; K21.9 Gastro-esophageal reflux disease without esophagitis; N40.0 Benign prostatic hyperplasia without lower urinary tract symptoms; F15.90 Other stimulant use, unspecified, uncomplicated; E86.0 Dehydration; I95.9 Hypotension, unspecified

== ENCOUNTER → 2020-11-02 08:39 | Outpatient (CLI) | payer OTHER ==
[2019-10-26 07:58] VITALS: BMI 27.3
== END | disposition home or self-care (01) ==
LOC: D.LAB 08:39
PROVIDERS: ATTEND Internal Medicine Pulmonary Disease
DX: Z11.52 Encounter for screening for COVID-19 (principal)

== ENCOUNTER → 2020-11-05 08:14 | Outpatient (CLI) | payer OTHER ==
[2019-10-26 07:58] VITALS: BMI 27.3
== END | disposition home or self-care (01) ==
LOC: D.RT 10-01 09:00
PROVIDERS: ATTEND Internal Medicine Pulmonary Disease
DX: J44.9 Chronic obstructive pulmonary disease, unspecified (principal); Z11.52 Encounter for screening for COVID-19